=== PATIENT | female | born 1995 | race Caucasian/White ===

== ENCOUNTER 2019-04-01 14:47 | Emergency (ER) | payer OTHER ==
[~2019-04-01] VITALS: Ht 162.6 cm; Wt 56.7 kg
[~2019-04-01 14:47] MED LIST: KLOR-CON 1010 MEQ; ONE DAILY MULT1 EAC2; SALT; TRAZODONE HCL50 MG
[2019-04-01] MEDS ORDERED: DEPO (14:54)
[2019-04-01 15:29] LABS: HEMATOCRIT 41.6 % (37.0-47.0); HEMOGLOBIN 14.2 gm/dL (12.0-15.0); MCH 32.4 pg (26.0-34.0); MCHC 34.2 g/dL (28.0-37.0); MCV 94.8 fL (80.0-100.0); NUCLEATED RBCS 0 /100WBC; PLATELET COUNT* 262 thou/uL (150-400); RBC 4.39 mil/uL (4.20-5.00); RDW-CV 15.2 % (10.5-14.5); WBC 9.6 thou/uL (4.0-11.0)
[2019-04-01 15:36] LABS: CALCIUM 8.7 mg/dL (8.5-10.1); CREATININE 1.1 mg/dL (0.6-1.3); POTASSIUM 3.7 mmol/L (3.5-5.1)
[2019-04-01 15:41] LABS: ALBUMIN 4.2 g/dL (3.4-5.0); TOTAL BILIRUBIN 0.4 mg/dL (<0.1-1.0); TOTAL PROTEIN 7.7 g/dL (6.4-8.2)
[2019-04-01 15:50] LABS: ALCOHOL 179 mg/dL (<10); SALICYLATE 4.5 mg/dL (2.8-20.0)
[2019-04-01 15:52] LABS: ACETAMINOPHEN < 2 ug/mL (10-30)
[2019-04-01 16:01] LABS: ABSOLUTE LYMPHOCYTES 1.3 thou/uL (0.8-5.3); ABSOLUTE MONOCYTES 0.3 thou/uL (0.0-1.2)
[2019-04-01 16:02] LABS: PLATELET ESTIMATE ADEQUATE
[2019-04-01 16:31] LABS: URINE BLOOD 2+ (Negative); URINE CLARITY CLEAR; URINE COLOR YELLOW; URINE GLUCOSE-RANDOM NEGATIVE (Negative); URINE KETONES 1+ (Negative); URINE LEUKOCYTES-REFLEX NEGATIVE (Negative); URINE NITRITE-REFLEX NEGATIVE (Negative); URINE PROTEIN 2+ (Negative); URINE SPECIFIC GRAVITY 1.025 (1.005-1.030); URINE UROBILINOGEN 0.2 E.U./dl (0.2-1.0)
[2019-04-01 16:32] LABS: URINE BILIRUBIN 1+ (Negative)
[2019-04-01 16:36] LABS: ICTOTEST (BILI CONFIRMATORY) Negative (Negative)
[2019-04-01 16:38] LABS: AMP/METHAMP Negative (Negative); BARBITURATES Negative (Negative); BENZODIAZEPINES Negative (Negative); COCAINE Negative (Negative); HYALINE CASTS 0-3 Few /LPF (None Seen); METHADONE Negative (Negative); OPIATES Negative (Negative); PCP Negative (Negative); SQUAMOUS >10 Many /LPF (0-3); THC POSITIVE (Negative)
[2019-04-01 16:39] LABS: BACTERIA-REFLEX 1-9 Few /HPF (None Seen); MUCUS None Seen strn/LPF (None Seen)
[2019-04-01 16:40] LABS: CRYSTALS None Seen /LPF (None Seen); URINE RBC 0-2 Rare /HPF (0-2); URINE WBC-REFLEX 0-5 Rare /HPF (0-5)
[2019-04-03 01:00] VITALS: BP 112/78
--- NOTE | 2019-04-03 16:14 | EKG ---
[place] [address] ELECTROCARDIOGRAM REPORT Name: WHIT OLEARY [id number] Admission: 04/01/19 Attend Phys: Discharge: 04/03/19 Date of : [birth year] Report #: [id number] THIS REPORT FOR: //name// [facility] ED Test Date: 2019-04-02 Test Time: 22:29:53 Pat Name: WHIT OLEARY Department: Room: Gender: F 5[employer] Grade Teacher: ROS : 1995 Requested By: Jose Guerra Order Number: [id number] MD: David Glover Measurements Intervals [place] Rate: 80 P: 43 FL: 127 QRS: 31 QRSD: 92 T: 42 QT: 386 QTc: 446 Interpretive Statements Sinus rhythm No previous ECG available for comparison Electronically Signed On 04-03-2019 16:14:12 CDT by David Glover [email or web address] <ELECTRONICALLY SIGNED> By: David Glover MD, [facility] 04/03/19 1614 [id number] David Glover MD, FACC /EPI
== END 2019-04-03 01:00 | disposition still patient (30) ==
LOC: M.ERS 14:47
PROVIDERS: Family Medicine
DX: S60.812A Abrasion of left wrist, initial encounter (principal); R10.13 Epigastric pain; F32.9 Major depressive disorder, single episode, unspecified; X78.9XXA Intentional self-harm by unspecified sharp object, initial encounter; Y93.89 Activity, other specified; Y92.89 Other specified places as the place of occurrence of the external cause; Y99.8 Other external cause status